=== PATIENT | male | born 1970 | race Caucasian/White ===

== ENCOUNTER 2016-07-26 20:54 | Inpatient (IN) | payer OTHER ==
[~2016-07-26] VITALS: Ht 170.2 cm; Wt 72.7 kg
[2016-07-26 22:12] LABS: HEMOGLOBIN 13.9 gm/dl (14.0-17.5); RED BLOOD COUNT 4.74 M/UL (4.20-5.50); WHITE BLOOD COUNT 10.4 K/UL (4.5-11.0)
[2016-07-26 22:29] LABS: BUN/CREATININE RATIO 8 (0-10)
[2016-07-28 06:25] LABS: BUN/CREATININE RATIO 10 (0-10)
[2016-07-31] MEDS ORDERED: BACTRIM DS TAB1 EACH PO (08:09)
[2016-07-31] MEDS ORDERED: TYLENOL W/CODEIN1 E1 PO (08:10)
--- NOTE | 2016-07-31 10:35 | NUR ---
PATIENT REFUSED HOME HEALTH. DRESSING CHANGE COMPLETED, TOLERATED WELL. IV WAS REMOVED AND PRESSURE HELD UNTIL BLEEDING STOPPED, THEN TAPE WAS APPLIED. DISCHARGE TEACHING AND EDUCATION COMPLETED WITH A VERBAL UNDERSTANDING STATED BY THE PATIENT AND HIS SIGNIFICANT OTHER. PATIENT LEFT THE UNIT TAKING ALL BELONGINGS.
== END 2016-07-31 07:43 | disposition home or self-care (01) | DRG 580 ==
LOC: ER1 20:54 → MED SURG 4 22:09 → ZEROF 22:09 → MED SURG 4 23:00
PROVIDERS: Physician Assistant; ADMIT Orthopaedic Surgery
PROC: 3E10X8Z Irrigation of Skin and Mucous Membranes using Irrigating Substance (ICD-10-PCS; 2016-07-27)
PROC: 0KBB0ZZ Excision of Left Lower Arm and Wrist Muscle, Open Approach (ICD-10-PCS; principal; 2016-07-27 23:00)
DX: L02.414 Cutaneous abscess of left upper limb (principal); I96 Gangrene, not elsewhere classified; L03.114 Cellulitis of left upper limb; F19.10 Other psychoactive substance abuse, uncomplicated; F17.210 Nicotine dependence, cigarettes, uncomplicated; Z88.0 Allergy status to penicillin; Z98.890 Other specified postprocedural states
CPT/HCPCS: 36415; 73110; 80048; 80053; 80202; 85025; 86140; 87040; 87070; 87205; 96374; 96375; 99284; J0696; J1885; J2250; J2270; J2405; J3010; J3370; J7030; J7050; J7070; J7120